=== PATIENT | female | born 1990 | race Caucasian/White ===

== ENCOUNTER 2017-08-11 19:52 | Emergency (ER) | payer MEDICAID, OTHER ==
[2017-08-11 20:38] VITALS: BP 132/86
[2017-08-11] MEDS ORDERED: FLUCONAZOLE 100 MG TABLET PO ONE (21:45)
--- NOTE | 2017-08-11 21:48 | ER Document Report ---
ED GI/ - General Chief Complaint: Vaginal Itching Stated Complaint: VAGINAL PAIN Time Seen by Provider: 08/11/17 21:23 Notes: Patient is a 27-year-old female comes emergency department for chief complaint of vaginal irritation and itching. She states that she was treated within the past couple of weeks with antibiotics for a urinary tract infection and also for a chlamydia infection, she states that this was diagnosed on a pelvic examination. She denies any nausea, vomiting, fever, flank pain. She states she tried Monistat and it helped some but her symptoms have not resolved yet. LMP about 3 weeks ago. TRAVEL OUTSIDE OF THE [place] IN LAST 30 DAYS: No - Related Data Allergies/Adverse Reactions: No Known Allergies Allergy (Verified 08/11/17 21:24) Past Medical History - General Information source: Patient Last Menstrual Period: 07/25/17 - Social History Smoking Status: Never Smoker Drug Abuse: None Lives with: Spouse/Significant other Family History: Reviewed & Not Pertinent Patient has suicidal ideation: No Patient has homicidal ideation: No - Medical History Medical History: Negative Renal/ Medical History: Denies: Hx Peritoneal Dialysis Past Surgical History: Reports: Hx Section - x2 - Immunizations Immunizations up to date: Yes Hx Diphtheria, Pertussis, Tetanus Vaccination: Yes Review of Systems - Review of Systems Constitutional: No symptoms reported EENT: No symptoms reported Cardiovascular: No symptoms reported Respiratory: No symptoms reported Gastrointestinal: No symptoms reported Genitourinary: No symptoms reported Female Genitourinary: See HPI Musculoskeletal: No symptoms reported Skin: No symptoms reported Hematologic/Lymphatic: No symptoms reported Neurological/Psychological: No symptoms reported Physical Exam - Vital signs Vitals: Temp Pulse Resp BP Pulse Ox 97.9 F 70 18 132/86 H 100 08/11/17 20:35 08/11/17 20:35 08/11/17 20:35 08/11/17 20:35 08/11/17 20:35 Interpretation: Normal - General General appearance: Appears well, Alert In distress: None - HEENT Head: Normocephalic, Atraumatic Eyes: Normal Pupils: PERRL - Respiratory Respiratory status: No respiratory distress Chest status: Nontender Breath sounds: Normal Chest palpation: Normal - Cardiovascular Rhythm: Regular Heart sounds: Normal auscultation Murmur: No - Abdominal Inspection: Normal Distension: No distension Bowel sounds: Normal Tenderness: Nontender. No: Tender, Guarding Organomegaly: No organomegaly - Back Back: Normal, Nontender. No: Tender, CVA tenderness - Extremities General upper extremity: Normal inspection, Nontender, Normal color, Normal ROM , Normal temperature General lower extremity: Normal inspection, Nontender, Normal color, Normal ROM , Normal temperature, Normal weight bearing. No: Jair's sign - Neurological Neuro grossly intact: Yes Cognition: Normal Orientation: AAOx4 [place] Coma Scale Eye Opening: Spontaneous [place] Coma Scale Verbal: Oriented [place] Coma Scale Motor: Obeys Commands [place] Coma Scale Total: 15 Speech: Normal Motor strength normal: LUE, RUE, LLE, RLE Sensory: Normal - Psychological Associated symptoms: Normal affect, Normal mood - Skin Skin Temperature: Warm Skin Moisture: Dry Skin Color: Normal Course - Re-evaluation Re-evalutation: Patient immediately states that she just had a pelvic exam and she does not want another one today. Soft abdomen, well-appearing patient, provided a urine sample (dirty), requesting to leave with treatment. Given Diflucan. To the urine sent and shows no gonorrhea or chlamydia. Soft abdomen on exam, well- appearing patient, unremarkable vital signs. Discussed follow-up recommendations and return precautions. Patient states understanding and agreement. - Vital Signs Vital signs: Temp Pulse Resp BP Pulse Ox 97.9 F 70 18 132/86 H 100 08/11/17 20:36 08/11/17 20:36 08/11/17 20:35 08/11/17 20:36 08/11/17 20:36 Discharge - Discharge Clinical Impression: Vaginal irritation Condition: Stable Disposition: HOME, SELF-CARE Additional Instructions: Your symptoms are consistent with a yeast infection. You have been treated for this tonight. Follow up with Primary Care. Return to the ED for any concerning symptoms.
[2017-08-12 00:02] LABS: CHLAM PCR NOT DETECTED (NOT DETECT)
== END 2017-08-11 22:30 | disposition home or self-care (01) ==
LOC: ER 19:52
DX: N89.8 Other specified noninflammatory disorders of vagina (principal); L29.9 Pruritus, unspecified; Z87.440 Personal history of urinary (tract) infections
CPT/HCPCS: 99283; 87491; 87591; J3490